=== PATIENT | male | born 1960 | race African-American/Black ===

== ENCOUNTER 2016-10-04 13:56 | Inpatient (IN) | payer OTHER ==
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
[2016-10-04] MEDS ORDERED: P-EPHED 60MG/TRIPROLIDI 2.5MG TABLET PO PRN (19:59)
[2016-10-04] MEDS ORDERED: hydrOXYzine PAMOATE 50 MG CAPSULE (FP) PO PRN (19:59)
[2016-10-04] MEDS ORDERED: MAGNESIUM HYDROX 2400MG/30ML ORAL SUSPENSION 30 ML CUP PO PRN (19:59)
[2016-10-04] MEDS ORDERED: MAGNESIUM CITRATE 300 ML BOTTLE PO PRN (19:59)
[2016-10-04] MEDS ORDERED: MENTHOL/PHENOL 1 EACH UD MM PRN (19:59)
[2016-10-04] MEDS ORDERED: diphenhydrAMINE HCL 50 MG CAPSULE PO PRN (19:59)
[2016-10-04] MEDS ORDERED: IBUPROFEN 400 MG TABLET (FP) PO PRN (19:59)
[2016-10-04] MEDS ORDERED: guaiFENesin/D-METHORPHAN HB 10 ML UNIT-DOSE CUPS PO PRN (19:59)
[2016-10-04] MEDS ORDERED: NICOTINE POLACRILEX 4 MG GUM BC PRN (19:59)
[2016-10-04] MEDS ORDERED: chlordiazePOXIDE HCL 25 MG CAPSULE PO PRN (19:59)
[2016-10-04] MEDS ORDERED: LOPERAMIDE HCL 2 MG CAPSULE PO PRN (19:59)
[2016-10-04] MEDS ORDERED: ACETAMINOPHEN 325 MG TABLET (FP) PO PRN (19:59)
[2016-10-04] MEDS ORDERED: MAG HYDROX/AL HYDROX/SIMETH 30 ML UNIT-DOSE CUP PO PRN (19:59)
[2016-10-04] MEDS: CLOTRIMAZOLE 1% CREAM 15 GM TUBE TP SCH (22:49)
[2016-10-04] MEDS: THIAMINE HCL 100 MG TABLET (FP) PO SCH (22:49)
[2016-10-04] MEDS: chlordiazePOXIDE HCL 25 MG CAPSULE PO SCH (22:49)
[2016-10-04 23:03] LABS: URINE APPEARANCE CLEAR; URINE BILIRUBIN NEGATIVE (NEGATIVE); URINE BLOOD NEGATIVE (NEGATIVE); URINE COLOR YELLOW; URINE GLUCOSE (UA) NEGATIVE (NEGATIVE); URINE KETONE TRACE (NEGATIVE); URINE LEUK ESTERASE NEGATIVE (NEGATIVE); URINE NITRITE NEGATIVE (NEGATIVE); URINE UROBILINOGEN NEGATIVE E.U./dl (0.2-1.0)
[2016-10-04 23:14] LABS: URINE PROTEIN 1+ (NEGATIVE)
[2016-10-04 23:18] LABS: URINE MUCUS RARE; URINE RBC 1 /hpf (0-3); URINE WBC 2 /hpf (3-5)
[2016-10-05] MEDS: chlordiazePOXIDE HCL 25 MG CAPSULE PO SCH ×3 (05:42→17:25)
[2016-10-05] MEDS: TAMSULOSIN HCL 0.4 MG CAP.ER.24H (FP) PO SCH (09:09)
--- NOTE | 2016-10-05 09:50 | PN ---
[facility] CIWA - CIWA Score Nausea/Vomitin-No Nausea/No Vomiting Muscle Tremors: 4-Moderate,w/Arms Extend Anxiety: 4-Mod. Anxious/Guarded Agitation: 4-Moderately Restless Paroxysmal Sweats: 1-Minimal Palms Moist Orientation: 0-Oriented Tacttile Disturbances: 3-Moderate Itch/Numb/Burn Auditory Disturbances: 0-None Visual Disturbances: 0-None Headache: 0-None Present CIWA-Ar Total Score: 16 BHS Progress Note (SOAP) Subjective: ANXIETY,TREMORS,SWEATS, FEET ACHES, CHRONIC LEFT KNEE DISCOMFORT. Objective: 10/05/16 09:47 Vital Signs Temperature 96.7 F L 10/05/16 09:40 Pulse Rate 71 10/05/16 09:40 Respiratory Rate 16 10/05/16 09:40 Blood Pressure 115/78 10/05/16 09:40 O2 Sat by Pulse Oximetry (%) Laboratory Last Values Urine Color Yellow 10/04/16 22:50 Urine Appearance Clear 10/04/16 22:50 Urine pH 5.0 (5.0-8.0) 10/04/16 22:50 Ur Specific [place] 1.032 (1.001-1.035) 10/04/16 22:50 Urine Protein 1+ (NEGATIVE) H 10/04/16 22:50 Urine Glucose (UA) Negative (NEGATIVE) 10/04/16 22:50 Urine Ketones Trace (NEGATIVE) H 10/04/16 22:50 Urine Blood Negative (NEGATIVE) 10/04/16 22:50 Urine Nitrite Negative (NEGATIVE) 10/04/16 22:50 Urine Bilirubin Negative (NEGATIVE) 10/04/16 22:50 Urine Urobilinogen Negative E.U./dl (0.2-1.0) 10/04/16 22:50 Ur Leukocyte Esterase Negative (NEGATIVE) 10/04/16 22:50 Urine RBC 1 /hpf (0-3) 10/04/16 22:50 Urine WBC 2 /hpf (3-5) 10/04/16 22:50 Ur Epithelial Cells Rare /hpf (FEW) 10/04/16 22:50 Urine Mucus Rare 10/04/16 22:50 Assessment: 10/05/16 09:49 WITHDRAWAL SX Plan: CONTINUE DETOX
[2016-10-05] MEDS: PRENATAL VITAMINS W/ FOLIC ACID TABLET (FP) PO SCH (10:11)
[2016-10-05] MEDS: NICOTINE 21 MG/24 HOURS TOPICAL PATCH TD SCH (10:12)
[2016-10-05] MEDS: CLOTRIMAZOLE 1% CREAM 15 GM TUBE TP SCH ×2 (10:12→22:06)
[2016-10-05 10:13] LABS: ALBUMIN 4.3 g/dl (3.4-5.0); ALK PHOS 75 U/L (45-117); ANION GAP 10 (8-16); BILIRUBIN,TOTAL 0.5 mg/dL (0.2-1.0); CALCIUM 9.6 mg/dL (8.5-10.1); CO2 28 mmol/L (21-32); GLUCOSE,RANDOM 106 mg/dL (74-106); SGOT/AST 34 U/L (15-37); SGPT/ALT 32 U/L (12-78); TOT PROT 7.7 g/dl (6.4-8.2)
[2016-10-05 10:15] LABS: MCH 29.6 pg (25.7-33.7); MCHC 32.9 g/dl (32.0-35.9); PLATELET COUNT 232 K/MM3 (134-434); RDW 14.9 % (11.9-15.9); WHITE BLOOD COUNT 7.7 K/mm3 (4.0-10.0)
[2016-10-05] MEDS: SERTRALINE HCL 50 MG TABLET (FP) PO SCH (10:56)
--- NOTE | 2016-10-05 11:00 | EKG ---
Test Reason : Blood Pressure : / mmHG Vent. Rate : 074 BPM Atrial Rate : 074 BPM P-R Int : 136 ms QRS Dur : 086 ms QT Int : 392 ms P-R-T Axes : 079 085 077 degrees QTc Int : 435 ms NORMAL SINUS RHYTHM NORMAL ECG NO PREVIOUS ECGS AVAILABLE Confirmed by MEL RIOS MD ([id number]) on 10/05/2016 11:00:02 AM Referred By: Confirmed By:MEL RIOS MD
--- NOTE | 2016-10-05 11:03 | CONSULT ---
[facility] Psychiatric Consult - Data Date of interview: 10/05/16 Admission source: [facility] Identifying data: This is 56 years old male with no psychiatric hospitalization history, intoxicated with Alcohol, Crack and Nicotine Substance Abuse History: Seroquel 50mg po qhs Medical History: Weight loss, BPH, DM to r/out Psychiatric History: Patient reports to carry Paranoid Schizophrenia, reports no history of psychiatric hospitalizations, reports currently takinhg :'. Zoloft 100mg poqd. Risperdal 3mg po qhs Physical/Sexual Abuse/Trauma History: Denies Additional Comment: Zoloft 100mg poqd. Risperdal 3mg po qhs Mental Status Exam - Mental Status Exam Alert and Oriented to: Person Cognitive Function: Fair Patient Appearance: Unkempt Mood: Sad Affect: Flat Patient Behavior: Sedated Speech Pattern: Delayed Voice Loudness: Mildly Soft/Quiet Thought Process: Circumstantial, Goal Oriented Thought Disorder: Being Controlled Hallucinations: Denies Suicidal Ideation: Denies Homicidal Ideation: Denies Insight/Judgement: Fair Sleep: Difficulty falling asleep Appetite: Fair Muscle strength/Tone: Normal Gait/Station: Normal Additional Comments: Zoloft 100mg poqd. Risperdal 3mg po qhs Psychiatric Findings - Problem List ([place] 1, 2,3) (1) Alcohol dependence with uncomplicated withdrawal Current Visit: Yes Status: Acute (2) Nicotine dependence Current Visit: Yes Status: Acute Qualifiers: Nicotine product type: cigarettes Substance use status: in withdrawal Qualified Code(s): F17.213 - Nicotine dependence, cigarettes, with withdrawal (3) Schizophrenia Current Visit: Yes Status: Suspected Qualifiers: Schizophrenia type: paranoid schizophrenia Qualified Code(s): F20.0 - Paranoid schizophrenia (4) Cocaine abuse Current Visit: Yes Status: Acute (5) Paranoid schizophrenia Current Visit: Yes Status: Acute - Initial Treatment Plan Initial Treatment Plan: Zoloft 100mg poqd. Risperdal 3mg po qhs
[2016-10-05] MEDS: CYCLOBENZAPRINE HCL 10 MG TABLET (FP) PO SCH ×2 (14:58→22:06)
[2016-10-05] MEDS: THIAMINE HCL 100 MG TABLET (FP) PO SCH (22:06)
[2016-10-05] MEDS: chlordiazePOXIDE 5 MG CAPSULE PO SCH (22:06)
[2016-10-05] MEDS: risperiDONE 3 MG TABLET PO SCH (22:07)
[2016-10-06] MEDS: CYCLOBENZAPRINE HCL 10 MG TABLET (FP) PO SCH ×3 (05:45→22:06)
[2016-10-06] MEDS: chlordiazePOXIDE 5 MG CAPSULE PO SCH ×3 (05:45→18:11)
[2016-10-06] MEDS: TAMSULOSIN HCL 0.4 MG CAP.ER.24H (FP) PO SCH (09:29)
--- NOTE | 2016-10-06 10:02 | PN ---
[facility] CIWA - CIWA Score Nausea/Vomitin-No Nausea/No Vomiting Muscle Tremors: 3 Anxiety: 2 Agitation: 2 Paroxysmal Sweats: 3 Orientation: 0-Oriented Tacttile Disturbances: 0-None Auditory Disturbances: 0-None Visual Disturbances: 0-None Headache: 0-None Present CIWA-Ar Total Score: 10 S Progress Note (SOAP) Subjective: Anxiety,tremors,sweating,interrupted sleep,restless Objective: 10/06/16 10:00 Vital Signs - 8 hr 10/06/16 10/06/16 06:44 09:42 Temperature 95.9 F L 96.4 F L Pulse Rate 102 H 109 H Respiratory 16 20 Rate Blood Pressure 132/87 119/86 Laboratory Tests 10/04/16 10/04/16 10/05/16 06:00 22:50 06:00 WBC 7.7 RBC 4.52 Hgb 13.4 Hct 40.7 MCV 90.0 MCHC 32.9 RDW 14.9 Plt Count 232 MPV 9.0 Sodium Potassium Chloride Carbon Dioxide Anion Gap BUN Creatinine Creat Clearance w eGFR Random Glucose Calcium Total Bilirubin AST ALT Alkaline Phosphatase Total Protein Albumin Urine Color Yellow Urine Appearance Clear Urine pH 5.0 Ur Specific [place] 1.032 Urine Protein 1+ H Urine Glucose (UA) Negative Urine Ketones Trace H Urine Blood Negative Urine Nitrite Negative Urine Bilirubin Negative Urine Urobilinogen Negative Ur Leukocyte Esterase Negative Urine RBC 1 Urine WBC 2 Ur Epithelial Cells Rare Urine Mucus Rare RPR Titer Hepatitis C Antibody <0.1 10/05/16 10/05/16 06:00 06:00 WBC RBC Hgb Hct MCV MCHC RDW Plt Count MPV Sodium 142 Potassium 3.8 Chloride 104 Carbon Dioxide 28 Anion Gap 10 BUN 24 H Creatinine 1.0 Creat Clearance w eGFR > 60 Random Glucose 106 Calcium 9.6 Total Bilirubin 0.5 AST 34 ALT 32 Alkaline Phosphatase 75 Total Protein 7.7 Albumin 4.3 Urine Color Urine Appearance Urine pH Ur Specific [place] Urine Protein Urine Glucose (UA) Urine Ketones Urine Blood Urine Nitrite Urine Bilirubin Urine Urobilinogen Ur Leukocyte Esterase Urine RBC Urine WBC Ur Epithelial Cells Urine Mucus RPR Titer Nonreactive Hepatitis C Antibody labs noted Assessment: 10/06/16 10:01 Withdrawal sx Plan: Continue detox
[2016-10-06] MEDS: CLOTRIMAZOLE 1% CREAM 15 GM TUBE TP SCH ×2 (10:16→22:05)
[2016-10-06] MEDS: PRENATAL VITAMINS W/ FOLIC ACID TABLET (FP) PO SCH (10:17)
[2016-10-06] MEDS: NICOTINE 21 MG/24 HOURS TOPICAL PATCH TD SCH (10:17)
[2016-10-06] MEDS: SERTRALINE HCL 50 MG TABLET (FP) PO SCH (10:17)
[2016-10-06] MEDS: THIAMINE HCL 100 MG TABLET (FP) PO SCH (22:05)
[2016-10-06] MEDS: chlordiazePOXIDE HCL 10 MG CAPSULE PO SCH (22:05)
[2016-10-06] MEDS: risperiDONE 3 MG TABLET PO SCH (22:06)
[2016-10-07] MEDS: chlordiazePOXIDE HCL 10 MG CAPSULE PO SCH ×3 (05:37→17:55)
[2016-10-07] MEDS: CYCLOBENZAPRINE HCL 10 MG TABLET (FP) PO SCH ×3 (05:37→22:09)
[2016-10-07] MEDS: TAMSULOSIN HCL 0.4 MG CAP.ER.24H (FP) PO SCH (10:06)
[2016-10-07] MEDS: PRENATAL VITAMINS W/ FOLIC ACID TABLET (FP) PO SCH (10:06)
[2016-10-07] MEDS: SERTRALINE HCL 50 MG TABLET (FP) PO SCH (10:06)
[2016-10-07] MEDS: NICOTINE 21 MG/24 HOURS TOPICAL PATCH TD SCH (10:06)
[2016-10-07] MEDS: CLOTRIMAZOLE 1% CREAM 15 GM TUBE TP SCH ×2 (10:06→22:08)
--- NOTE | 2016-10-07 13:19 | PN ---
S Progress Note (SOAP) Subjective: Interrupted Sleep, Restlessness, Tremors, Body Aches Objective: Vital Signs Temperature 98.5 F 10/07/16 09:45 Pulse Rate 108 H 10/07/16 09:45 Respiratory Rate 20 10/07/16 09:45 Blood Pressure 132/82 10/07/16 09:45 O2 Sat by Pulse Oximetry (%) Laboratory Last Values WBC 7.7 K/mm3 (4.0-10.0) 10/05/16 06:00 RBC 4.52 M/mm3 (4.00-5.60) 10/05/16 06:00 Hgb 13.4 GM/dL (11.7-16.9) 10/05/16 06:00 Hct 40.7 % (35.4-49) 10/05/16 06:00 MCV 90.0 fl (80-96) 10/05/16 06:00 MCHC 32.9 g/dl (32.0-35.9) 10/05/16 06:00 RDW 14.9 % (11.9-15.9) 10/05/16 06:00 Plt Count 232 K/MM3 (134-434) 10/05/16 06:00 MPV 9.0 fl (7.5-11.1) 10/05/16 06:00 Sodium 142 mmol/L (136-145) 10/05/16 06:00 Potassium 3.8 mmol/L (3.5-5.1) 10/05/16 06:00 Chloride 104 mmol/L (98-107) 10/05/16 06:00 Carbon Dioxide 28 mmol/L (21-32) 10/05/16 06:00 Anion Gap 10 (8-16) 10/05/16 06:00 BUN 24 mg/dL (7-18) H 10/05/16 06:00 Creatinine 1.0 mg/dL (0.7-1.3) 10/05/16 06:00 Creat Clearance w eGFR > 60 (>60) 10/05/16 06:00 Random Glucose 106 mg/dL (74-106) 10/05/16 06:00 Calcium 9.6 mg/dL (8.5-10.1) 10/05/16 06:00 Total Bilirubin 0.5 mg/dL (0.2-1.0) 10/05/16 06:00 AST 34 U/L (15-37) 10/05/16 06:00 ALT 32 U/L (12-78) 10/05/16 06:00 Alkaline Phosphatase 75 U/L (45-117) 10/05/16 06:00 Total Protein 7.7 g/dl (6.4-8.2) 10/05/16 06:00 Albumin 4.3 g/dl (3.4-5.0) 10/05/16 06:00 Urine Color Yellow 10/04/16 22:50 Urine Appearance Clear 10/04/16 22:50 Urine pH 5.0 (5.0-8.0) 10/04/16 22:50 Ur Specific [place] 1.032 (1.001-1.035) 10/04/16 22:50 Urine Protein 1+ (NEGATIVE) H 10/04/16 22:50 Urine Glucose (UA) Negative (NEGATIVE) 10/04/16 22:50 Urine Ketones Trace (NEGATIVE) H 10/04/16 22:50 Urine Blood Negative (NEGATIVE) 10/04/16 22:50 Urine Nitrite Negative (NEGATIVE) 10/04/16 22:50 Urine Bilirubin Negative (NEGATIVE) 10/04/16 22:50 Urine Urobilinogen Negative E.U./dl (0.2-1.0) 10/04/16 22:50 Ur Leukocyte Esterase Negative (NEGATIVE) 10/04/16 22:50 Urine RBC 1 /hpf (0-3) 10/04/16 22:50 Urine WBC 2 /hpf (3-5) 10/04/16 22:50 Ur Epithelial Cells Rare /hpf (FEW) 10/04/16 22:50 Urine Mucus Rare 10/04/16 22:50 RPR Titer Nonreactive (NONREACTIVE) 10/05/16 06:00 Hepatitis C Antibody <0.1 s/co ratio (0.0-0.9) 10/04/16 06:00 vitals and labs noted Assessment: withdrawal symptoms Plan: Continue Detox
[2016-10-07] MEDS: risperiDONE 3 MG TABLET PO SCH (22:09)
[2016-10-07] MEDS: THIAMINE HCL 100 MG TABLET (FP) PO SCH (22:09)
[2016-10-08] MEDS: CYCLOBENZAPRINE HCL 10 MG TABLET (FP) PO SCH (05:51)
[2016-10-08 06:46] VITALS: BP 124/81; PULSE 94; TEMP 95.8
--- NOTE | 2016-10-08 19:44 | DS ---
[facility] Detox Discharge Summary Admission Date: 10/04/16 Discharge Date: 10/08/16 - History Present History: Alcohol Dependence Pertinent Past History: BPH PPD+ - Physical Exam Results Vital Signs: Vital Signs Temperature 95.8 F L 10/08/16 06:46 Pulse Rate 94 H 10/08/16 06:46 Respiratory Rate 18 10/08/16 06:46 Blood Pressure 124/81 10/08/16 06:46 O2 Sat by Pulse Oximetry (%) Pertinent Admission Physical Exam Findings: Withdrawal sx. Laboratory Last Values WBC 7.7 K/mm3 (4.0-10.0) 10/05/16 06:00 RBC 4.52 M/mm3 (4.00-5.60) 10/05/16 06:00 Hgb 13.4 GM/dL (11.7-16.9) 10/05/16 06:00 Hct 40.7 % (35.4-49) 10/05/16 06:00 MCV 90.0 fl (80-96) 10/05/16 06:00 MCHC 32.9 g/dl (32.0-35.9) 10/05/16 06:00 RDW 14.9 % (11.9-15.9) 10/05/16 06:00 Plt Count 232 K/MM3 (134-434) 10/05/16 06:00 MPV 9.0 fl (7.5-11.1) 10/05/16 06:00 Sodium 142 mmol/L (136-145) 10/05/16 06:00 Potassium 3.8 mmol/L (3.5-5.1) 10/05/16 06:00 Chloride 104 mmol/L (98-107) 10/05/16 06:00 Carbon Dioxide 28 mmol/L (21-32) 10/05/16 06:00 Anion Gap 10 (8-16) 10/05/16 06:00 BUN 24 mg/dL (7-18) H 10/05/16 06:00 Creatinine 1.0 mg/dL (0.7-1.3) 10/05/16 06:00 Creat Clearance w eGFR > 60 (>60) 10/05/16 06:00 Random Glucose 106 mg/dL (74-106) 10/05/16 06:00 Calcium 9.6 mg/dL (8.5-10.1) 10/05/16 06:00 Total Bilirubin 0.5 mg/dL (0.2-1.0) 10/05/16 06:00 AST 34 U/L (15-37) 10/05/16 06:00 ALT 32 U/L (12-78) 10/05/16 06:00 Alkaline Phosphatase 75 U/L (45-117) 10/05/16 06:00 Total Protein 7.7 g/dl (6.4-8.2) 10/05/16 06:00 Albumin 4.3 g/dl (3.4-5.0) 10/05/16 06:00 Urine Color Yellow 10/04/16 22:50 Urine Appearance Clear 10/04/16 22:50 Urine pH 5.0 (5.0-8.0) 10/04/16 22:50 Ur Specific [place] 1.032 (1.001-1.035) 10/04/16 22:50 Urine Protein 1+ (NEGATIVE) H 10/04/16 22:50 Urine Glucose (UA) Negative (NEGATIVE) 10/04/16 22:50 Urine Ketones Trace (NEGATIVE) H 10/04/16 22:50 Urine Blood Negative (NEGATIVE) 10/04/16 22:50 Urine Nitrite Negative (NEGATIVE) 10/04/16 22:50 Urine Bilirubin Negative (NEGATIVE) 10/04/16 22:50 Urine Urobilinogen Negative E.U./dl (0.2-1.0) 10/04/16 22:50 Ur Leukocyte Esterase Negative (NEGATIVE) 10/04/16 22:50 Urine RBC 1 /hpf (0-3) 10/04/16 22:50 Urine WBC 2 /hpf (3-5) 10/04/16 22:50 Ur Epithelial Cells Rare /hpf (FEW) 10/04/16 22:50 Urine Mucus Rare 10/04/16 22:50 RPR Titer Nonreactive (NONREACTIVE) 10/05/16 06:00 Hepatitis C Antibody <0.1 s/co ratio (0.0-0.9) 10/04/16 06:00 labs noted - Treatment Hospital Course: Detox Protocol Followed, Detoxed Safely, Responded well, Discharged Condition Good, Rehab Referral Accepted Patient has Accepted a Rehab Referral to: [facility] - Medication Discharge Medications: Ambulatory Orders Risperidone [Risperdal -] 3 mg PO HS 10/04/16 Sertraline HCl [Zoloft -] 100 mg PO DAILY 10/04/16 Risperidone [Risperdal -] 3 mg PO HS #30 tablet 10/05/16 Sertraline HCl [Zoloft -] 100 mg PO DAILY #30 tablet 10/05/16 - Diagnosis (1) Alcohol dependence with uncomplicated withdrawal Status: Acute (2) Benign prostate hyperplasia Status: Acute Qualifiers: Prostatic enlargement morphology: non-nodular Lower urinary tract symptom presence: symptoms present Qualified Code(s): N40.1 - Enlarged prostate with lower urinary tract symptoms (3) Borderline diabetes Status: Acute (4) Nicotine dependence Status: Acute Qualifiers: Nicotine product type: cigarettes Substance use status: in withdrawal Qualified Code(s): F17.213 - Nicotine dependence, cigarettes, with withdrawal (5) Paranoid schizophrenia Status: Acute - AMA Did Patient Leave Against Medical Advice: No
== END 2016-10-08 09:49 | disposition home or self-care (01) | DRG 774 ==
LOC: YASAS 13:56 → Y3N 18:22
PROVIDERS: ADMIT Internal Medicine; ATTEND Internal Medicine
PROC: HZ2ZZZZ Detoxification Services for Substance Abuse Treatment (ICD-10-PCS; principal; 2016-10-08)
DX: F10.230 Alcohol dependence with withdrawal, uncomplicated (principal); F17.213 Nicotine dependence, cigarettes, with withdrawal; F14.10 Cocaine abuse, uncomplicated; F20.0 Paranoid schizophrenia; E11.9 Type 2 diabetes mellitus without complications; N40.1 Benign prostatic hyperplasia with lower urinary tract symptoms; B35.1 Tinea unguium; R63.4 Abnormal weight loss; Z68.20 Body mass index [BMI] 20.0-20.9, adult
CPT/HCPCS: 36415; 71020-TC; 80053; 81003; 81015; 85027; 86593; 93005; 93010

== ENCOUNTER 2019-02-21 12:27 | Inpatient (IN) | payer OTHER | END 2019-02-24 19:30 | disposition other institution (70) | LOC: YASAS 12:27 → Y3N 19:20 ==

== ENCOUNTER 2019-02-24 19:47 | Inpatient (IN) | payer OTHER ==
[2019-02-24] MEDS ORDERED: LOPERAMIDE HCL 2 MG CAPSULE PO PRN (21:24)
[2019-02-24] MEDS ORDERED: P-EPHED 60MG/TRIPROLIDI 2.5MG TABLET PO PRN (21:24)
[2019-02-24] MEDS ORDERED: MENTHOL/PHENOL 1 EACH UD MM PRN (21:24)
[2019-02-24] MEDS ORDERED: guaiFENesin 200 MG/10 ML 10 ML UNIT-DOSE CUPS PO PRN (21:24)
[2019-02-24] MEDS ORDERED: MAGNESIUM HYDROX 2400MG/30ML ORAL SUSPENSION 30 ML CUP PO PRN (21:24)
[2019-02-24] MEDS ORDERED: IBUPROFEN 400 MG TABLET (FP) PO PRN (21:24)
[2019-02-24] MEDS ORDERED: ACETAMINOPHEN 325 MG TABLET (FP) PO PRN (21:24)
[2019-02-24] MEDS ORDERED: NICOTINE POLACRILEX 2 MG GUM BUC PRN (21:24)
[2019-02-24] MEDS ORDERED: MAGNESIUM CITRATE 300 ML BOTTLE PO PRN (21:24)
[2019-02-24] MEDS ORDERED: MAG HYDROX/AL HYDROX/SIMETH 30 ML UNIT-DOSE CUP PO PRN (21:24)
--- NOTE | 2019-02-24 21:26 | HP ---
[facility] Re[facility] Assess/Revision - Admission History Admitted to Rehab from: [facility] - Vital signs Vital Signs: Vital Signs Period Temp Pulse Resp BP Sys/Coffman Pulse Ox Last 24 Hr 98.5 F 81 18 137/88 - Findings Detox History & Physical reviewed: Yes Concur with findings: Yes Inpatient Rehab Admission - Rehab Decision to Admit Inpatient rehab admission?: Yes - Initial Determination Are CD services needed?: No Free of communicable disease: Yes Not in need of hospitalization: Yes - Rehab Admission Criteria Previous failed treatment: Yes Poor recovery environment: Yes Comorbidities: Yes Lacks judgement: Yes Patient is meeting Inpatient Rehab admission criteria:: Yes
[2019-02-24] MEDS ORDERED: MELATONIN 5 MG TABLETS PO PRN (22:00)
[2019-02-24] MEDS: THIAMINE HCL 100 MG TABLET (FP) PO SCH (22:04)
[2019-02-25 06:56] VITALS: TEMP 98
[2019-02-25] MEDS: NICOTINE 14 MG/24 HOURS TOPICAL PATCH TD SCH (10:25)
[2019-02-25] MEDS: PRENATAL VITAMINS W/ FOLIC ACID TABLET (FP) PO SCH (10:25)
[2019-02-25] MEDS: LIDOCAINE 5% TOPICAL PATCH TP SCH (14:33)
[2019-02-25] MEDS: THIAMINE HCL 100 MG TABLET (FP) PO SCH (21:35)
[2019-02-25] MEDS ORDERED: LIDOCAINE PATCH REMOVAL MC SCH (22:00)
[2019-02-26 06:45] VITALS: BP 124/79; PULSE 77
[2019-02-26] MEDS: PRENATAL VITAMINS W/ FOLIC ACID TABLET (FP) PO SCH (09:15)
[2019-02-26] MEDS: NICOTINE 14 MG/24 HOURS TOPICAL PATCH TD SCH (09:15)
[2019-02-26] MEDS: LIDOCAINE 5% TOPICAL PATCH TP SCH (09:20)
--- NOTE | 2019-02-26 09:27 | PN ---
[facility] Progress Note (SOAP) Subjective: Pt is a 58 y/o male admitted to rehab on 02/24 and requested to sign out today for personal reasons-"somethings I have to take care of that has deadline". Pt met with his counselor and CD aftercare referral package given to patient for follow up. pt denies s/h/i. Objective: 02/26/19 12:44 Alert o x 3 Ambulates with steady gait. Vital Signs - 24 hr 02/26/19 02/26/19 02/26/19 00:30 03:30 06:45 Temperature 98.0 F Pulse Rate 77 Respiratory 18 18 18 Rate Blood Pressure 124/79 Home Medications Medication Instructions Recorded Risperidone [Risperdal -] 3 mg PO HS #30 tablet 10/05/16 Sertraline HCl [Zoloft -] 100 mg PO DAILY #30 tablet 10/05/16 Clonazepam [Klonopin] 1 mg PO DAILY 02/21/19 Ibuprofen [Motrin -] 800 mg PO BID 02/21/19 Multivitamins [Multivit ([facility] 1 tablet PO DAILY 02/21/19 Formulary)] Vitamin B Complex [B Complex] 1 tablet PO DAILY 02/21/19 Assessment: 02/26/19 12:45 Nad Medically stable [facility] Inpatient Services Medical - Diagnosis (1) Benign prostate hyperplasia Qualifiers: Lower urinary tract symptom presence: symptoms present Qualified Code(s): N40.1 - Benign prostatic hyperplasia with lower urinary tract symptoms Status: Chronic (2) Borderline diabetes Status: Suspected (3) Nicotine dependence Qualifiers: Nicotine product type: cigarettes Substance use status: uncomplicated Qualified Code(s): F17.210 - Nicotine dependence, cigarettes, uncomplicated Status: Chronic (4) Cocaine abuse Status: Chronic (5) Alcohol dependence Qualifiers: Substance use status: uncomplicated Qualified Code(s): F10.20 - Alcohol dependence, uncomplicated Status: Chronic Initialized on 02/26/19 09:27 - END OF NOTE 02/26/19 12:53 Plan: Pt signed out AMA Follow up with CD aftercare recommendation @ [facility] [place], [place] Follow up with primary care with pcp Charli Smith @ [facility] within 1 week after discharge.
== END 2019-02-26 09:35 | disposition left against medical advice (07) | DRG 770 ==
LOC: YASAS 19:47 → Y5N 19:48
PROVIDERS: ADMIT Neuromusculoskeletal Medicine & OMM; ATTEND Neuromusculoskeletal Medicine & OMM
PROC: HZ42ZZZ Group Counseling for Substance Abuse Treatment, Cognitive-Behavioral (ICD-10-PCS; principal; 2019-02-24)
DX: F10.20 Alcohol dependence, uncomplicated (principal); F14.10 Cocaine abuse, uncomplicated; F17.210 Nicotine dependence, cigarettes, uncomplicated; R73.03 Prediabetes; N40.1 Benign prostatic hyperplasia with lower urinary tract symptoms